=== PATIENT | female | born 2000 | race African-American/Black ===

== ENCOUNTER 2020-11-20 20:19 | Emergency (ER) | payer OTHER ==
[~2020-11-20] VITALS: Ht 154.9 cm; Wt 77.0 kg
[2020-11-20 22:07] VITALS: BP 131/84
[2020-11-20] MEDS: LIDOCAINE HCL/PF 1% 10 MG/ML 5ML VIAL INFIL ONE (22:56)
[2020-11-20] MEDS: ACETAMINOPHEN 325MG TABLET PO ONE (22:56)
[2020-11-20] MEDS: TRAMADOL 50MG TABLET PO ONE (22:56)
[2020-11-20] MEDS: TETANUS, DIPHTHERIA, PERTUSSIS VAC/PF 0.5ML (>7YR OLD) IM ONE (23:08)
[2020-11-20] MEDS: BACITRACIN ZINC OINT UDPKT TOP ONE (23:08)
[2020-11-20] MEDS ORDERED: BO1 TP (23:27)
[2020-11-20] MEDS ORDERED: ACET-2708 MT (23:27)
== END 2020-11-20 23:59 | disposition home or self-care (01) ==
LOC: ER 20:19
DX: S01.81XA Laceration without foreign body of other part of head, initial encounter (principal); V49.40XA Driver injured in collision with unspecified motor vehicles in traffic accident, initial encounter; W22.11XA Striking against or struck by driver side automobile airbag, initial encounter; Y93.89 Activity, other specified; Y92.89 Other specified places as the place of occurrence of the external cause; Y99.8 Other external cause status
CPT/HCPCS: 12001; 81025; 90471; 90715; 99283; J3490; Z7610

== ENCOUNTER 2020-12-14 16:39 | Emergency (ER) | payer OTHER ==
[~2020-12-14] VITALS: Ht 154.9 cm; Wt 77.0 kg
[~2020-12-14 16:39] MED LIST: ACET-2708 MT; BO1 TP
[2020-12-14 17:50] VITALS: BP 120/78
== END 2020-12-14 17:50 | disposition home or self-care (01) ==
LOC: ER 16:39
DX: Z48.02 Encounter for removal of sutures (principal)
CPT/HCPCS: 99281